=== PATIENT | female | born 1950 | race Caucasian/White ===

== ENCOUNTER 2016-07-07 10:19 | Inpatient (IN) | payer OTHER ==
[~2016-07-07] VITALS: Ht 170.2 cm; Wt 114.8 kg
[2016-07-07 12:05] LABS: BASOPHIL % 0.3 % (0-2); PLATELET COUNT 394 x10^3mcL (130-400)
[2016-07-07 12:18] LABS: CALCIUM 9.1 mg/dL (8.5-10.1); CARBON DIOXIDE 30.4 mmol/L (21-32); POTASSIUM SERUM 3.9 mmol/L (3.5-5.1)
[2016-07-07 12:22] LABS: ALBUMIN 3.8 g/dL (3.4-5.0); BILIRUBIN TOTAL 0.5 mg/dL (0.20-1.00); TOTAL PROTEIN, SERUM 7.2 g/dL (6.4-8.2)
[2016-07-07 12:36] LABS: UA SPECIFIC GRAVITY 1.025 (1.005-1.035); microscopic required? YES; urine erythrocyte 2+ (NEGATIVE)
[2016-07-07 12:42] LABS: AMPHETAMINE QUAL UR NONE DETECTED (NEG <=1000)
[2016-07-07] MEDS ORDERED: CORE25 PO (14:25)
[2016-07-07] MEDS ORDERED: PRILOSEC OTC20 M1 PO (14:26)
[2016-07-07] MEDS ORDERED: ALDACTONE25 MG PO (14:26)
[2016-07-07] MEDS ORDERED: ZOLOFT25 MG PO (14:26)
[2016-07-07] MEDS ORDERED: ASPIR 8181 MG PO (14:26)
[2016-07-07 15:01] VITALS: BP 120/70
[2016-07-07 15:03] VITALS: Ht 170.2 cm; Wt 114.8 kg
[2016-07-07 15:31] LABS: T3 TOTAL 1.28 ng/mL
[2016-07-07 15:35] LABS: FREE T4 1.05 ng/dL (0.76-1.46); FREE THYROXINE INDEX 3.3 ug/dL (1.4-4.5); T4(THYROXINE) 9.1 ug/dL (4.7-13.3)
[2016-07-07 17:10] VITALS: BP 120/72
[2016-07-07 21:33] VITALS: BP 112/62
[2016-07-08 05:25] LABS: PLATELET COUNT 325 x10^3mcL (130-400)
[2016-07-08 05:26] LABS: BASOPHIL % 0 % (0-2); RED CELL DISTRIBUTION WIDTH 14.8 % (11.5-14.5)
[2016-07-08 05:34] LABS: CALCIUM 9.1 mg/dL (8.5-10.1); CARBON DIOXIDE 27.6 mmol/L (21-32); CHLORIDE SERUM 106 mmol/L (98-107); CREATININE SERUM 0.9 mg/dL (0.6-1.0); GFR1 > 60 mL/min; GLUCOSE SERUM 158 mg/dL (74-106); MAGNESIUM 2.1 mg/dL (1.8-2.4); PHOSPHOROUS 3.8 mg/dL (2.5-4.9); SODIUM SERUM 144 mmol/L (136-145)
[2016-07-08 05:51] VITALS: BP 106/52
[2016-07-08 10:10] VITALS: BP 107/56
[2016-07-08 14:06] VITALS: BP 118/62
[2016-07-08 16:03] VITALS: BP 118/62
[2016-07-08] MEDS ORDERED: CLA10 PO (16:55)
[2016-07-08] MEDS ORDERED: MEDDP PO (16:55)
== END 2016-07-08 17:27 | disposition home or self-care (01) | DRG 308 ==
LOC: ED 10:19 → DU 14:06
PROVIDERS: Emergency Medicine; ADMIT Family Medicine
DX: I48.0 Paroxysmal atrial fibrillation (principal); I50.43 Acute on chronic combined systolic (congestive) and diastolic (congestive) heart failure; T78.3XXD Angioneurotic edema, subsequent encounter; R31.29 Other microscopic hematuria; J06.9 Acute upper respiratory infection, unspecified; K21.9 Gastro-esophageal reflux disease without esophagitis; H61.21 Impacted cerumen, right ear; I10 Essential (primary) hypertension; F41.9 Anxiety disorder, unspecified; E66.9 Obesity, unspecified; Z68.39 Body mass index [BMI] 39.0-39.9, adult
CPT/HCPCS: 80307; 83880; 84439; J2920; J7030